=== PATIENT | male | born 1980 | race Caucasian/White ===

== ENCOUNTER 2016-09-26 15:19 | Inpatient (IN) | payer OTHER ==
[~2016-09-26] VITALS: Ht 170.2 cm; Wt 80.7 kg
[~2016-09-26 15:19] MED LIST: GLUCOTROL XL 22.5 MG PO; HYDROCHLOROTH12.5 MG PO; JANUVIA25 MG PO; LISINOPRIL30 MG PO; METFORMIN HCL1000 MG PO; NORCO 10-325 T1 EACH PO; SIMVASTATIN10 MG PO; VITAMIN D5000 UNIT PO
[2016-09-26 16:28] LABS: HEMOGLOBIN 15.4 gm/dl (14.0-17.5); RED BLOOD COUNT 5.02 M/UL (4.20-5.50); WHITE BLOOD COUNT 13.5 K/UL (4.5-11.0)
[2016-09-26 16:50] LABS: BUN/CREATININE RATIO 10 (0-10)
[2016-09-27 04:33] LABS: RED BLOOD COUNT 4.25 M/UL (4.20-5.50); WHITE BLOOD COUNT 10.3 K/UL (4.5-11.0)
[2016-09-27 04:34] LABS: HEMOGLOBIN 12.8 gm/dl (14.0-17.5)
[2016-09-27 04:53] LABS: BUN/CREATININE RATIO 6 (0-10)
[2016-09-27] MEDS ORDERED: LANTUS SOL100 UNIT/1 SQ (17:37)
[2016-09-27] MEDS ORDERED: WELLBUTRIN SR150 M1 PO (17:40)
[2016-09-27] MEDS ORDERED: NEURONTIN 300300 MG PO (17:40)
[2016-09-28 05:00] LABS: HEMOGLOBIN 12.6 gm/dl (14.0-17.5); RED BLOOD COUNT 4.15 M/UL (4.20-5.50); WHITE BLOOD COUNT 8.4 K/UL (4.5-11.0)
[2016-09-28 05:47] LABS: BUN/CREATININE RATIO 6 (0-10)
[2016-09-29] MEDS ORDERED: PERCOCET 10-321 EACH PO (17:03)
[2016-09-29] MEDS ORDERED: GLUCOTROL XL10 MG PO (17:03)
[2016-09-29] MEDS ORDERED: DOXYCYCLINE HY100 MG PO (17:04)
== END 2016-09-29 17:27 | disposition home or self-care (01) | DRG 854 ==
LOC: ER1 15:19 → MED SURG 4 18:27 → ZEROF 18:27 → MED SURG 4 19:58
PROVIDERS: Physician Assistant Medical; ADMIT Internal Medicine
PROC: 0H99XZZ Drainage of Perineum Skin, External Approach (ICD-10-PCS; principal; 2016-09-28)
DX: A41.9 Sepsis, unspecified organism (principal); L02.214 Cutaneous abscess of groin; L03.314 Cellulitis of groin; E11.9 Type 2 diabetes mellitus without complications; I10 Essential (primary) hypertension; E87.6 Hypokalemia; E78.5 Hyperlipidemia, unspecified; B95.62 Methicillin resistant Staphylococcus aureus infection as the cause of diseases classified elsewhere; Z79.4 Long term (current) use of insulin; Z79.84 Long term (current) use of oral hypoglycemic drugs; Z79.899 Other long term (current) drug therapy
CPT/HCPCS: 36415; 80048; 80053; 80202; 82565; 82962; 83605; 83735; 85025; 85027; 85610; 85730; 87040; 87070; 87077; 87186; 87205; 96361; 96365; 99285; J0696; J2250; J2270; J2765; J3010; J3370; J7030; J7050; J7070; J7120; Q9962